=== PATIENT | male | born 2000 ===

== ENCOUNTER 2019-08-13 12:22 | Emergency (ER) | payer BC ==
[~2019-08-13] VITALS: Ht 170.2 cm; Wt 86.4 kg
[2019-08-13 12:37] VITALS: TEMP 98.8
[2019-08-13 15:12] LABS: COLLECTION METHOD CLEAN CATCH
[2019-08-13 15:18] LABS: BASO % 0.2 % (0.0-2.0); EOS % 0.1 % (0-4.0); GRAN # 8.5 (1.4-6.5); GRAN % 88.4 % (42.2-75.2); HEMATOCRIT 49.8 % (36.0-47.0); HEMOGLOBIN 16.9 g/dl (12.5-16.1); LYMPH # 0.5 (1.2-3.4); MEAN CELL VOLUME 78 fl (80.0-95.0); MEAN CORPUSCULAR HEMOGLOBIN 27 pg (26.0-32.0); MEAN CORPUSCULAR HGB CONC 34 g/dl (33.0-37.0); MEAN PLATELET VOLUME 11.8 fl (7.4-10.4); MONO # 0.6 (0.1-0.6); MONO % 5.9 % (1.7-9.3); PLATELET COUNT 188 K/mm3 (130-400); RED BLOOD COUNT 6.37 M/mm3 (4.20-5.60); REDCELL DISTRIBUTION WIDTH-CV 14.4 % (11.5-14.5)
[2019-08-13 15:25] LABS: MUCOUS Present /lpf; PH 5 (5-8); SQUAMOUS EPITHELIAL None Seen /hpf; URINE APPEARANCE Clear; URINE BACTERIA None Seen /hpf; URINE BILIRUBIN Negative (NEGATIVE); URINE BLOOD 1+ (NEGATIVE); URINE COLOR Yellow; URINE GLUCOSE Negative (NEGATIVE); URINE KETONE Negative (NEGATIVE); URINE LEUKOCYTE ESTERASE Negative (NEGATIVE); URINE NITRATE Negative (NEGATIVE); URINE PROTEIN(semi-quant) Negative (NEGATIVE); URINE RBC 0-2 /hpf; URINE UROBILINOGEN Negative (NEGATIVE)
[2019-08-13 15:32] LABS: ALBUMIN 4.7 gm/dL (3.5-5.0); BILIRUBIN,TOTAL 1.3 mg/dL (0.0-1.0); C-REACTIVE PROTEIN 3.4 mg/dL (0.0-0.9); CALCIUM 8.8 mg/dL (8.4-10.2); CREATININE, serum 1.41 (0.66-1.25); POTASSIUM 4.3 mmol/L (3.4-5.0); TOTAL PROTEIN 8.2 gm/dL (6.4-8.2)
[2019-08-13] MEDS ORDERED: ZOFRAN ODT4 MG PO (16:47)
[2019-08-13 18:01] VITALS: BP 148/92; PULSE 108
== END 2019-08-13 18:01 | disposition home or self-care (01) ==
LOC: COL.ER 12:22
PROVIDERS: Family Medicine
DX: E86.9 Volume depletion, unspecified (principal); R19.7 Diarrhea, unspecified
CPT/HCPCS: J2405; J7120